=== PATIENT | female | born 1950 | race Caucasian/White ===

== ENCOUNTER 2017-02-18 13:53 | Observation (INO) | payer MEDICARE, OTHER ==
[~2017-02-18 13:53] MED LIST: ATROVENT2.5 ML INH; ENULOSE10 GM/15 M PO; LEVAQUIN750 MG PO; NASONEX17 GM NS; NICODERM 21MG PA1 EA TD; PEPCID20 MG PO; TENORMIN50 MG PO; XOPENEX0.63 MG/3 NEB; [UNRECOGNIZED DRUG - OTHER] PO
== END 2017-02-19 07:10 | disposition other institution (70) ==
LOC: MS 13:53
PROVIDERS: ADMIT Family Medicine
DX: J44.1 Chronic obstructive pulmonary disease with (acute) exacerbation (principal); J18.9 Pneumonia, unspecified organism; M41.9 Scoliosis, unspecified; K21.9 Gastro-esophageal reflux disease without esophagitis; I10 Essential (primary) hypertension; E55.9 Vitamin D deficiency, unspecified; R10.31 Right lower quadrant pain; R13.10 Dysphagia, unspecified; R31.9 Hematuria, unspecified; K59.00 Constipation, unspecified; B37.9 Candidiasis, unspecified; F17.210 Nicotine dependence, cigarettes, uncomplicated; Z98.890 Other specified postprocedural states; Z88.2 Allergy status to sulfonamides; Z88.6 Allergy status to analgesic agent; Z79.899 Other long term (current) drug therapy; Z82.49 Family history of ischemic heart disease and other diseases of the circulatory system
CPT/HCPCS: 36415; 71250; 80048; 85025; 86738; 87040; 94664; 96361; 96365; 96366; 96375; 96376; 99070; G0378; J2930

== ENCOUNTER 2017-02-18 13:53 | Inpatient (IN) | payer MEDICARE, OTHER ==
[~2017-02-18] VITALS: Ht 160 cm; Wt 54.0 kg
[2017-02-18 15:46] LABS: BASO % 0.1 % (0.1-1.2); GRAN # 8.1 10_X3_uL (1.6-6.1); GRAN % 78.5 % (34.0-71.1); HEMATOCRIT 42.2 % (34-45); HEMOGLOBIN 13.9 g/dL (11.2-15.7); LYMPH % 9.9 % (19.3-51.7); MEAN CORPUSCULAR HEMOGLOBIN 30.9 pg (27.0-33.0); MEAN CORPUSCULAR HGB CONC 32.9 g/dL (32.0-36.0); MEAN CORPUSCULAR VOLUME 93.8 fL (79-95); MEAN PLATELET VOLUME 10.3 fl (7.5-11.5); MONO # 1.2 10_X3_uL (0.2-0.9); MONO % 11.5 % (4.7-12.5); PLATELET COUNT 147 x10_3/uL (182-369); RED CELL DISTRIBUTION WIDTH 14.9 % (11.7-14.4); WHITE BLOOD COUNT 10.3 x10_3/uL (4.0-10.0)
[2017-02-18 15:57] LABS: BLOOD UREA NITROGEN 12 mg/dL (7-18); CALCIUM 8.5 mg/dL (8.7-10.7); CARBON DIOXIDE 30 mmol/L (21-32); CREATININE < 0.5 mg/dL (0.6-1.3); GLUCOSE,RANDOM 113 mg/dL (70-99); SODIUM 131 mmol/L (136-145)
[2017-02-20 07:08] LABS: HEMATOCRIT 41.4 % (34-45); HEMOGLOBIN 13.2 g/dL (11.2-15.7); MEAN CORPUSCULAR HEMOGLOBIN 30.6 pg (27.0-33.0); MEAN CORPUSCULAR HGB CONC 31.9 g/dL (32.0-36.0); MEAN CORPUSCULAR VOLUME 96.1 fL (79-95); MEAN PLATELET VOLUME 10.8 fl (7.5-11.5); RED BLOOD COUNT 4.31 x10_6/uL (3.9-5.2); WHITE BLOOD COUNT 8.4 x10_3/uL (4.0-10.0)
[2017-02-20 07:15] LABS: BLOOD UREA NITROGEN 13 mg/dL (7-18); CALCIUM 8.3 mg/dL (8.7-10.7); CARBON DIOXIDE 27 mmol/L (21-32); CREATININE < 0.5 mg/dL (0.6-1.3); GLUCOSE,RANDOM 142 mg/dL (70-99); POTASSIUM 4.5 mmol/L (3.5-5.1); SODIUM 136 mmol/L (136-145)
[2017-02-20 20:15] LABS: URINE BILIRUBIN NEGATIVE (NEGATIVE); URINE BLOOD NEGATIVE (NEGATIVE); URINE GLUCOSE (UA) NORMAL (NORMAL); URINE KETONE NEGATIVE (NEGATIVE); URINE LEUKOCYTE ESTERASE 2+ (NEGATIVE); URINE NITRATE NEGATIVE (NEGATIVE); URINE PROTEIN 1+ (NEGATIVE); UROBILINOGEN NORMAL mg/dL (<1.0)
[2017-02-20 20:44] LABS: URINE RBC 0-5 /[HPF] (0-2); URINE SQUAMOUS EPITHELIAL CELL 0-10 /[HPF] (NONE SEEN)
[2017-02-20 20:45] LABS: URINE BACTERIA FEW (NONE SEEN)
[2017-02-21 06:35] LABS: HEMATOCRIT 41.8 % (34-45); HEMOGLOBIN 13.4 g/dL (11.2-15.7); MEAN CORPUSCULAR HGB CONC 32.1 g/dL (32.0-36.0); MEAN CORPUSCULAR VOLUME 96.8 fL (79-95); MEAN PLATELET VOLUME 10.4 fl (7.5-11.5); RED BLOOD COUNT 4.32 x10_6/uL (3.9-5.2); RED CELL DISTRIBUTION WIDTH 15.2 % (11.7-14.4); WHITE BLOOD COUNT 6.7 x10_3/uL (4.0-10.0)
[2017-02-21 06:46] LABS: BLOOD UREA NITROGEN 11 mg/dL (7-18); CALCIUM 8.2 mg/dL (8.7-10.7); CARBON DIOXIDE 31 mmol/L (21-32); CREATININE < 0.5 mg/dL (0.6-1.3); GLUCOSE,RANDOM 122 mg/dL (70-99); POTASSIUM 4.7 mmol/L (3.5-5.1); SODIUM 139 mmol/L (136-145)
[2017-02-22 06:42] LABS: BLOOD UREA NITROGEN 10 mg/dL (7-18); CALCIUM 7.8 mg/dL (8.7-10.7); CARBON DIOXIDE 32 mmol/L (21-32); CREATININE < 0.5 mg/dL (0.6-1.3); GLUCOSE,RANDOM 128 mg/dL (70-99); POTASSIUM 4.7 mmol/L (3.5-5.1); SODIUM 137 mmol/L (136-145)
[2017-02-22 07:02] LABS: HEMATOCRIT 41.7 % (34-45); MEAN CORPUSCULAR HEMOGLOBIN 30.3 pg (27.0-33.0); MEAN CORPUSCULAR HGB CONC 31.2 g/dL (32.0-36.0); MEAN CORPUSCULAR VOLUME 97.2 fL (79-95); RED BLOOD COUNT 4.29 x10_6/uL (3.9-5.2); RED CELL DISTRIBUTION WIDTH 15.1 % (11.7-14.4); WHITE BLOOD COUNT 5.8 x10_3/uL (4.0-10.0)
== END 2017-02-22 12:52 | disposition home or self-care (01) | DRG 190 ==
LOC: MS 13:53
PROVIDERS: Family Medicine; ADMIT Family Medicine
DX: J44.1 Chronic obstructive pulmonary disease with (acute) exacerbation (principal); J18.9 Pneumonia, unspecified organism; M41.9 Scoliosis, unspecified; K21.9 Gastro-esophageal reflux disease without esophagitis; I10 Essential (primary) hypertension; E55.9 Vitamin D deficiency, unspecified; F17.210 Nicotine dependence, cigarettes, uncomplicated; R10.31 Right lower quadrant pain; Z98.890 Other specified postprocedural states; Z88.2 Allergy status to sulfonamides; Z88.6 Allergy status to analgesic agent; Z79.899 Other long term (current) drug therapy; Z82.49 Family history of ischemic heart disease and other diseases of the circulatory system; R13.10 Dysphagia, unspecified; R31.9 Hematuria, unspecified; K59.00 Constipation, unspecified; B37.9 Candidiasis, unspecified
CPT/HCPCS: 36415; 71010; 71250; 80048; 81001; 85025; 86738; 87040; 87070; 87086; 87205; 87449; 93041; 94640; 94664; 99070; J2930

== ENCOUNTER 2017-02-23 10:31 | Emergency (ER) | payer MEDICARE, OTHER ==
[2017-02-23 11:24] LABS: BASO % 0.2 % (0.1-1.2); GRAN # 8.6 10_X3_uL (1.6-6.1); GRAN % 82.5 % (34.0-71.1); HEMATOCRIT 43.7 % (34-45); LYMPH # 0.9 10_X3_uL (1.2-3.7); LYMPH % 8.5 % (19.3-51.7); MEAN CORPUSCULAR HEMOGLOBIN 30.6 pg (27.0-33.0); MEAN CORPUSCULAR VOLUME 95.4 fL (79-95); MEAN PLATELET VOLUME 10.1 fl (7.5-11.5); MONO # 0.9 10_X3_uL (0.2-0.9); MONO % 8.8 % (4.7-12.5); PLATELET COUNT 149 x10_3/uL (182-369); RED BLOOD COUNT 4.58 x10_6/uL (3.9-5.2); RED CELL DISTRIBUTION WIDTH 14.6 % (11.7-14.4); WHITE BLOOD COUNT 10.4 x10_3/uL (4.0-10.0)
[2017-02-23 11:43] LABS: ALBUMIN 3.1 gm/dL (3.4-5.0); ALKALINE PHOSPHATASE 47 U/L (50-136); ALT/SGPT 37 U/L (3.5-33.9); AST/SGOT 33 U/L (7.04-26.96); BLOOD UREA NITROGEN 8 mg/dL (7-18); CALCIUM 8.2 mg/dL (8.7-10.7); CARBON DIOXIDE 36 mmol/L (21-32); CREATININE < 0.5 mg/dL (0.6-1.3); GLUCOSE,RANDOM 110 mg/dL (70-99); POTASSIUM 4.3 mmol/L (3.5-5.1); SODIUM 136 mmol/L (136-145); TOTAL PROTEIN 5.7 gm/dL (6.4-8.2)
== END 2017-02-23 14:09 | disposition home or self-care (01) ==
LOC: ER 10:31
PROVIDERS: Emergency Medicine
DX: J44.9 Chronic obstructive pulmonary disease, unspecified (principal); F17.210 Nicotine dependence, cigarettes, uncomplicated
CPT/HCPCS: 36415; 71010; 80053; 83605; 85025; 86738; 94664; 96365; 96375; 99284; 99285-25; J2930